=== PATIENT | male | born 2000 | race Caucasian/White ===

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

== ENCOUNTER 2024-06-05 11:18 | Emergency (ER) | payer OTHER ==
[2024-06-05 11:56] VITALS: BP 123/75; PULSE 73; RESP 20; TEMP 98.4; BMI 24.0
== END 2024-06-05 13:47 | disposition home or self-care (01) ==
LOC: JERFT 11:18
DX: M79.641 Pain in right hand (principal); S62.316D Displaced fracture of base of fifth metacarpal bone, right hand, subsequent encounter for fracture with routine healing
CPT/HCPCS: 73130-TC-RT-FY; 99283-25